=== PATIENT | female | born 1970 | race Caucasian/White ===

== ENCOUNTER 2020-06-01 11:45 | Emergency (ER) | payer MEDICAID, OTHER ==
[~2020-06-01] VITALS: Ht 160 cm; Wt 73.9 kg
[2020-06-01 12:01] VITALS: BP 157/100
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
[2020-06-01] MEDS ORDERED: ONDANSETRON 4 MG/2 ML VIAL IVP ONE (13:00)
[2020-06-01] MEDS ORDERED: NACL 0.9% 1,000 ML IV SCH (13:00)
[2020-06-01] MEDS ORDERED: KETOROLAC 15 MG/ML VIAL IVP ONE (13:05)
--- NOTE | 2020-06-01 13:17 | NUR ---
UNABLE TO ACCESS IV SITE IN AC FOR CT WITH CONTRAST. DR. CORTES MADE AWARE. US SET UP AT BEDSIDE FOR IV INSERTION US GUIDED BY DR. CORTES. LAB AT BEDSIDE FOR BLOOD DRAW.
[2020-06-01 13:26] LABS: APPEARANCE,URINE CLEAR (CLEAR); BILIRUBIN,URINE NEGATIVE (NEGATIVE); BLOOD, URINE NEGATIVE (NEGATIVE); COLOR,URINE YELLOW (YELLOW); LEUKOCYTE ESTERASE ,URINE NEGATIVE (NEGATIVE); NITRITE, URINE NEGATIVE (NEGATIVE); UGLUCOSE NEGATIVE (NEGATIVE)
[2020-06-01 13:28] LABS: BASOPHILS # (AUTO) 0.2 K/uL (0.00-0.22); BASOPHILS % (AUTO) 1.6 % (0.0-2.0); EOSINOPHILS # (AUTO) 0.1 K/uL (0-0.4); EOSINOPHILS % (AUTO) 0.7 % (0.0-4.0); HEMATOCRIT 41.1 % (36-48); HEMOGLOBIN 13.2 g/dL (12.0-16.0); LYMPHOCYTES % (AUTO) 17.8 % (20.5-51.1); MEAN CORPUSCULAR HEMOGLOBIN 26 pg (27-31); MEAN CORPUSCULAR HGB CONC 32 g/dL (33-37); MEAN CORPUSCULAR VOLUME 81.6 fL (80-94); MONOCYTES # (AUTO) 0.5 K/uL (0.8-1.0); MONOCYTES % (AUTO) 4.5 % (1.7-9.3); NEUTROPHILS # (AUTO) 8.4 K/uL (1.8-7.7); NEUTROPHILS % (AUTO) 75.4 % (42.2-75.2); PLATELET COUNT (AUTO) 366 K/uL (140-450); RED BLOOD CELL COUNT(AUTO) 5.03 MIL/uL (4.20-5.40); RED CELL DISTRIBUTION WIDTH 15.1 % (11.6-13.7); WHITE BLOOD COUNT (AUTO) 11.1 K/uL (4.8-10.8)
[2020-06-01 13:37] LABS: CARBON DIOXIDE 28.5 mmol/L (21-32); CREATININE 0.8 mg/dL (0.6-1.3); POTASSIUM 4.5 mmol/L (3.5-5.1)
[2020-06-01 13:50] LABS: ALBUMIN 3.6 g/dL (3.4-5.0); TOTAL BILIRUBIN 0.3 mg/dL (0.0-1.0)
--- NOTE | 2020-06-01 13:57 | NUR ---
CT CONSENT OBTAINED FROM PT, COPY IS AT NURSING DESK AND ORIGNIAL IN PT CHART. ERMD IN ROOM ASSESSING PT.
--- NOTE | 2020-06-01 14:36 | NUR ---
R US BRACHIAL GUIDED IV ESTABLISHED BY LINDSAY.
--- NOTE | 2020-06-01 16:09 | NUR ---
JOSHUA GOMES SISTER CALLED TO HAVE AN UPDATE ON PT. LET HER KNOW THAT WE ARE WAITING ON THE RESULTS OF THE CT SCAN.
[2020-06-01] MEDS ORDERED: METOCLOPRAMIDE 10 MG/2 ML INJ VIAL IVP ONE (16:55)
[2020-06-01] MEDS ORDERED: METO-485 PO (17:03)
[2020-06-01] MEDS ORDERED: ALUM355S59 PO (17:03)
[2020-06-01] MEDS ORDERED: ACET-9882 PO (17:03)
--- NOTE | 2020-06-01 17:13 | NUR ---
IV removed, catheter intact and site benign. Applied folded 4x4 gauze and tape to stop bleeding.
[2020-06-01 17:18] VITALS: BP 157/100
--- NOTE | 2020-06-01 17:18 | NUR ---
Patient discharged with v/s stable. Written and verbal after care instructions given and explained. Patient alert, oriented and verbalized understanding of instructions. Ambulatory with steady gait. All questions addressed prior to discharge. ID band removed. Patient advised to follow up with PMD. Rx of ACETAMINOPHE, REGLAN, MAALOX given. Patient educated on indication of medication including possible reaction and side effects. Opportunity to ask questions provided and answered.
== END 2020-06-01 17:18 | disposition home or self-care (01) ==
LOC: MED 11:45
DX: R10.9 Unspecified abdominal pain (principal); R11.10 Vomiting, unspecified; F17.290 Nicotine dependence, other tobacco product, uncomplicated; F15.90 Other stimulant use, unspecified, uncomplicated; F11.90 Opioid use, unspecified, uncomplicated
CPT/HCPCS: 36415; 74177; 76705; 80053; 81003; 82150; 83690; 84703; 85025; 96361; 96374; 96375; 99285; J1885; J2405; J2765; J7030; Q9967